=== PATIENT | male | born 1955 | race Caucasian/White ===

== ENCOUNTER 2019-10-20 06:00 | Outpatient (RCR) | payer OTHER, SELFPAY | END 2019-10-25 00:01 | LOC: APT 06:00 | PROVIDERS: Family Provider Emergency Medicine Emergency Medical Services; Visit Provider Specialist | DX: M17.12 Unilateral primary osteoarthritis, left knee (principal) | CPT/HCPCS: 97110 ×2; 97161 ==

== ENCOUNTER 2019-10-26 06:00 | Outpatient (RCR) | payer OTHER, SELFPAY | END 2019-11-25 23:59 | disposition home or self-care (01) | LOC: APT 06:00 | PROVIDERS: Family Provider Emergency Medicine Emergency Medical Services; PCP Emergency Medicine Emergency Medical Services; Visit Provider Specialist | DX: M17.12 Unilateral primary osteoarthritis, left knee (principal) | CPT/HCPCS: 97110; 97164 ==

== ENCOUNTER 2019-11-26 06:00 | Outpatient (RCR) | payer OTHER, SELFPAY | END 2019-12-24 23:59 | disposition home or self-care (01) | LOC: APT 06:00 | PROVIDERS: Family Provider Emergency Medicine Emergency Medical Services; PCP Emergency Medicine Emergency Medical Services; Visit Provider Specialist | DX: M17.12 Unilateral primary osteoarthritis, left knee (principal) | CPT/HCPCS: 97110; 97112 ==

== ENCOUNTER → 2022-08-13 09:34 | Outpatient (BNVA) | payer OTHER, SELFPAY | PROVIDERS: Family Provider Emergency Medicine Emergency Medical Services; PCP Emergency Medicine Emergency Medical Services; Visit Provider Orthopaedic Surgery | DX: M67.911 Unspecified disorder of synovium and tendon, right shoulder (principal) | CPT/HCPCS: 99203 ==

== ENCOUNTER 2022-08-19 08:48 | Outpatient (CLI) | payer OTHER, SELFPAY ==
--- NOTE | 2022-08-19 | ECG_ITS ---
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 Interpretive Statements NAME OF STUDY: LEXISCAN SESTAMIBI STRESS TEST INDICATION: Abnormal EKG , PROCEDURE: At the baseline, the EKG revealed normal sinus rhythm with diffuse nonspecific ST-T changes and frequent PVCs. The baseline heart was 77 bpm with a blood pressue of 121/79 mm of Hg Lexiscan was infused over a period of 20 seconds. A total of 0.4 milligrams of Lexiscan was infused. The stress phase was continued for a total of 5 minutes. Heart rate at the end of the stress phase was 89 bpm with a blood pressure 99/73 mm of Hg. The EKG at the peak infusion revealed no significant changes. Sestamibi was injected 20 seconds after the Lexiscan infusion. Heart rate at the end of the recovery phase was 90 bpm with a blood pressure of 114/69 mm of Hg. CONCLUSION: 1. No significant EKG changes with the LexiScan infusion 2. No LexiScan induced chest pain or cardiac arrhythmia 3. Normal blood pressure and heart rate response 4. Sestamibi/sestamibi perfusion scan pending; see separate report. Electronically Signed On 08-19-2022 13:50:21 CDT by Alber Bravo M.D. [id number]
[2022-08-19 09:10] VITALS: BMI 24.7
--- NOTE | 2022-08-19 09:14 | NMCV_ITS ---
NM lynsey perf SPECT r/s* [id number] Rohit London Age: 66 Gender: M : 1955 Exam Date: 08/19/2022 09:26 Ordering Phys: James Ding DO Technologist: SANTOS Clifton Exam Location: [facility] Indications: Chest pain STRESS TEST Please see separate stress test report in Ephiphany for full findings IMAGE PROTOCOL Rest/Stress 1 Lexiscan Day Radiopharmaceutical Dose (mCi) Administration Site Administered by Rest: Tc-99m 10.6 IV SANTOS Aguilera Sestamibi Stress:Tc-99m 32.6 IV SANTOS Clifton Sestamibi Rest: 19-Aug-2022 60 Discovery 630 Stress: 19-Aug-2022 30 Discovery 630 0.4mg Lexiscan. Images obtained in supine and prone position. SPECT RESULTS Technical Quality: Excellent Raw Data Analysis: Normal Image Corrections: No attenuation or motion correction applied Summed Stress Score: 24 Summed Rest Score: 18 Summed Difference Score: 6 PERFUSION FINDINGS Large area of moderate to severely decreased tracer uptake was noted in the inferior, inferolateral, anterolateral and apical lateral regions. Some reversibility was noted in the inferior and anterolateral regions. FUNCTIONAL RESULTS (calculated via Gated SPECT) Stress Image LV EF (%): 25 Stress EDV (mL):132 TID: 1.02 Stress ESV (mL):99 FUNCTIONAL FINDINGS: Segmental wall motion analysis reveals severe diffuse hypokinesia of the septum, LV apex and apical inferior wall regions IMPRESSIONS 1. Myocardial perfusion imaging revealing large area of moderately to severely decreased tracer uptake in the inferior, inferolateral, anterolateral and apical lateral regions for significant reversibility suggesting myocardial scarring with ischemia in the distribution of the right coronary artery and circumflex artery predominantly. Some involvement of the anterior descending artery territory also was noted. 2. Diminished LV ejection fraction 25%. 3. Multiple wall motion normalities as mentioned above. 4. Mild to moderate dilatation of the LV cavity -end-systolic volume of 99 ml. No similar previous studies are available for comparison Dr Alber Bravo MD FAC (Electronically Signed) Final Date: 19 August 2022 12:52 S
[2022-08-19] MEDS: regadenoson 0.4 Mg/5 ml Syringe IVP (10:29)
[2022-08-19 10:43] VITALS: BP 114/69; PULSE 89
== END 2022-08-19 08:49 | disposition home or self-care (01) ==
LOC: CDL 08:54
PROVIDERS: PCP Emergency Medicine Emergency Medical Services; Visit Provider Emergency Medicine Emergency Medical Services
DX: R94.31 Abnormal electrocardiogram [ECG] [EKG] (principal); R07.9 Chest pain, unspecified
CPT/HCPCS: 78452; 93017; A9500; J2785

== ENCOUNTER → 2022-10-07 09:28 | Outpatient (BNVA) | payer OTHER, SELFPAY | PROVIDERS: PCP Emergency Medicine Emergency Medical Services; Visit Provider Internal Medicine Cardiovascular Disease | DX: R94.39 Abnormal result of other cardiovascular function study (principal); I50.9 Heart failure, unspecified; J44.9 Chronic obstructive pulmonary disease, unspecified; M19.90 Unspecified osteoarthritis, unspecified site; F17.210 Nicotine dependence, cigarettes, uncomplicated | CPT/HCPCS: 99204 ==

== ENCOUNTER 2023-01-18 16:20 | Emergency (ER) | payer OTHER, SELFPAY ==
[2023-01-18 16:22] VITALS: BP 135/84; PULSE 88; RESP 16; TEMP 36.7; O2SAT 94
--- NOTE | 2023-01-18 16:30 | ED_ITS ---
HPI - Wound/Laceration General: Chief Complaint: Wound/Laceration Stated Complaint: LEFT THIGH LAC Time Seen by Provider: 01/18/23 16:25 History of Present Illness: 67-year-old male with laceration to left anterior thigh. Patient states he lost control of his skill saw and it cut into his thigh. He came immediately to the emergency department after sustaining the injury. No lack of sensation below the injury, ambulatory on the extremity, able to extend and hold his leg up. No other injury sustained, head strike, other sequelae of injury. [facility] ED PFSH: Medical History CHF (NYHA class II, ACC/AHA stage C) Congestive heart failure, NYHA class 3 COPD (chronic obstructive pulmonary disease) DJD (degenerative joint disease) Smoker Surgical History (Updated 10/07/22 @ 10:14 by Ruth Meraz MD) History of surgery on arm Family History Mother Diabetes Social History Smoking and tobacco status: current every day smoker cigarettes Packs smoked per day: 1 Years cigarettes smoked: 30 Alcohol intake: never Physical Exam Narrative: EXAM NARRATIVE: Left leg examination: Inspection demonstrates angulated medial to lateral inferiorly clean laceration with visible tendon sheath of the quadriceps muscle. Above the joint by approximately one half. Const: COMMON NORMALS: no acute distress and average body habitus HENMT: COMMON NORMALS: normocephalic, atraumatic and Normal external nose present HEAD & SCALP: normocephalic and atraumatic NOSE: Normal external nose present and Normal nares present Eye: COMMON NORMALS: Equal, round and reactive pupils present and EOMs intact bilaterally PUPIL: Yes Equal, round and reactive pupils present Neck/C-Spine: COMMON NORMALS: full ROM and no lymphadenopathy Resp: COMMON NORMALS: normal respiratory effort and No retractions Cardio: COMMON NORMALS: regular rate and Peripheral pulses 2+ throughout RATE: regular rate PERIPHERAL PULSES: Peripheral pulses 2+ throughout GI: INSPECTION: Yes normal to inspection Procedures Laceration Laceration 1: Side (If applicable): left Size (cm): 10 Description: linear Depth: simple, single layer Local Anesthetic: lidocaine 1% and with epi Pre-repair: wound explored, irrigated extensively and deep structures intact Skin layer closed with: nylon Size (cm): 3-0 Number of sutures: 8 Technique: simple, interrupted Course Vital Signs: Vital signs: Vital Signs Temperature 98.0 F 01/18/23 16:22 Pulse Rate 88 01/18/23 16:22 Respiratory Rate 16 01/18/23 16:22 Blood Pressure 135/84 01/18/23 16:22 Pulse Oximetry 94 01/18/23 16:22 Oxygen Delivery Me thod 01/18/23 16:22 MDM - Wound/Laceration Medical Decision Making 67-year-old male with simple superficial laceration. Vitals nonactionable. Diagnoses considered include neurovascular injury, tendinous injury, potential for infection, penetration of the joint, others. Examination does not suggest complication of this laceration as considered. Social determinants of health include [place] and [place] Repaired per procedure note and advised of signs of infection need to return. Should have sutures removed in 7 to 10 days. Patient states had tetanus updated 5 years ago and declines tetanus today. Differential Diagnosis Likely laceration Medical Records I reviewed the patient's medical records. Discharge Plan Discharge Patient Disposition: Home Clinical Impression: Laceration Condition: Stable Prescriptions: No Action meloxicam 15 mg tablet 15 mg PO DAILY PRN Discharge Orders: Discharge ED (Routine); Ordered 01/18/23 Ordered By: Ranjan Roy Referrals: James Ding, DO [Primary Care Provider] - Discharge Diet: Advance as tolerated Discharge Activity: Resume usual activity Patient Instructions: Opioid Safety, Pain Management Coding Level of Care Code ED Automotive Service Writer for Lori Carrero
[2023-01-18] MEDS: lidocaine-epi 1% 20 mL INJ INJECTION (16:31)
--- NOTE | 2023-01-18 16:31 | PC.NURSE ---
Lidocaine given to physician for administration
[2023-01-18 17:21] VITALS: PULSE 85; RESP 18; O2SAT 98
== END 2023-01-18 17:22 | disposition home or self-care (01) ==
PROVIDERS: Emergency Provider General Practice; PCP Emergency Medicine Emergency Medical Services
DX: S71.112A Laceration without foreign body, left thigh, initial encounter (principal); F17.210 Nicotine dependence, cigarettes, uncomplicated; I50.9 Heart failure, unspecified; J44.9 Chronic obstructive pulmonary disease, unspecified; W27.0XXA Contact with workbench tool, initial encounter
CPT/HCPCS: 12004; 99282

== ENCOUNTER 2023-03-30 08:57 | Emergency (ER) | payer OTHER, SELFPAY ==
[2023-03-30] VITALS (7 sets, daily range): BP systolic 104–164; BP diastolic 77–94; PULSE 68–97; RESP 18; TEMP 36.8; O2SAT 92–95; BMI 25.0
--- NOTE | 2023-03-30 09:02 | XRR_ITS ---
PROCEDURE INFORMATION: Exam: XR Chest Exam date and time: 03/30/2023 9:07 AM Age: 67 years old Clinical indication: Cough and dyspnea; Additional info: Dyspnea/cough TECHNIQUE: Imaging protocol: Radiologic exam of the chest. Views: 1 view. COMPARISON: DX XR shoulder RT min 2V* [id number] 07/18/2022 9:32 AM FINDINGS: Lungs: Unremarkable. No consolidation. Pleural spaces: Unremarkable. No pleural effusion. No pneumothorax. Heart/Mediastinum: Unremarkable. No cardiomegaly. Bones/joints: Unremarkable. XR/XR chest 1V portable [id number] IMPRESSION: No acute findings.
--- NOTE | 2023-03-30 09:02 | ECG_ITS ---
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 Measurements Intervals [place] Rate: 68 P: 67 [place]: 200 QRS: 10 QRSD: 97 T: 159 QT: 391 QTc: 417 Interpretive Statements SINUS RHYTHM ST DEVIATION AND MODERATE T-WAVE ABNORMALITY, CONSIDER LATERAL ISCHEMIA [-0.1+ mV T-WAVE IN I/aVL/V5/V6] No previous ECG available for comparison Electronically Signed On 03-30-2023 16:43:53 CDT by Addi Ibarra M.D. [email or web address]/[id number]
[2023-03-30] MEDS: sodium chloride 0.9% 1,000 ML 999 ML IV (09:07)
[2023-03-30 09:11] LABS: Basophils % 0.4 %; Eosinophils # 0.1 10^3/uL (0.0-0.8); Eosinophils % 0.6 %; Hematocrit 49.2 % (42.0-52.0); Hemoglobin 16.3 g/dL (11.7-16.6); Lymphocytes # 1.1 10^3/uL (0.8-4.8); Lymphocytes % 10.6 %; Mean Corpuscular HGB Conc 33.1 g/dL (30.0-36.0); Mean Corpuscular Hemoglobin 28.7 pg (28.0-34.0); Mean Corpuscular Volume 86.8 fl (80-94); Mean Platelet Volume 10.6 fL (7.4-10.4); Monocytes # 0.4 10^3/uL (0.2-0.9); Monocytes % 3.9 %; Neutrophils % 84.2 %; Nucleated Red Blood Cells % 0 %; Platelet Count 212 10^3/cmm (130-400); Red Blood Count 5.67 10^6/uL (4.1-5.3); Red Cell Distribution Width 14.2 % (12.1-15.1); White Blood Count 10.3 10^3/uL (4.0-10.0)
--- NOTE | 2023-03-30 09:27 | W.ED.ABDPA2 ---
HPI - Abdominal Pain General: Chief Complaint: Abdominal Pain Stated Complaint: ABD PAIN Time Seen by Provider: 03/30/23 08:58 Source: patient Mode of arrival: EMS History of Present Illness: 67-year-old male presents to the emergency room with complaint of upper abdominal pain. States it began overnight. He has not had any dysuria urgency or frequency denies any medic easy melena hematemesis or coffee-ground emesis. Patient is not on any proton pump inhibitors. He denies any previous abdominal surgeries no fever sweats or chills. In July 2022 patient had an abnormal stress test. He had follow-up with Dr. Meraz and requested to follow-up with his 's president and chief commercial officer. He has not seen president and chief commercial officer yet. He denies any recent chest pain or shortness of breath. The abdominal discomfort he is having today is not associated with exertion. MD elicited complaint: abdominal pain Onset (ago): minute(s) Pain Consistency: intermittent Location: Epigastric Severity: mild Exacerbating factors: nothing Relieving factors: nothing Associated Symptoms: Denies anorexia, belching, bloating, change in bowel habits, change in stool character, chills, coffee ground emesis, constipation, GI cramping, diarrhea, dyspepsia, dysuria, excessive flatus, fever(s), heartburn, hematochezia, hematuria, hematemesis, fecal incontinence, loose stools, melena, nausea, poor appetite, syncope and vomiting Review of Systems Const: Denies: fever(s) or chills ENMT: Denies: throat pain, ear or mastoid pain, nasal discharge or nasal congestion Card: Denies: chest pain, palpitations, irregular heart rhythm, edema or syncope Resp: Denies: dyspnea, productive cough or non-productive cough GI: Reports: abdominal pain; Denies: nausea, vomiting, hematemesis, coffee ground emesis, heartburn, diarrhea, constipation, bloating, GI cramping, belching, excessive flatus, fecal incontinence, change in bowel habits, change in stool character, hematochezia or melena : Denies: dysuria, urinary frequency, urinary urgency or hematuria Skin/Breast: Denies: rash or pruritus PFSH ED PFSH: Medical History CHF (NYHA class II, ACC/AHA stage C) Congestive heart failure, NYHA class 3 COPD (chronic obstructive pulmonary disease) DJD (degenerative joint disease) Smoker Surgical History History of surgery on arm Family History Mother Diabetes Social History Smoking and tobacco status: current every day smoker cigarettes Packs smoked per day: 1 Years cigarettes smoked: 30 Alcohol intake: never Substance/Drug Use: never Physical Exam Const: COMMON NORMALS: no acute distress GENERAL APPEARANCE: cooperative and comfortable ORIENTATION/CONSCIOUSNESS: Yes awake, Yes oriented to person, Yes oriented to place and Yes oriented to time HENMT: COMMON NORMALS: normocephalic, atraumatic and hearing grossly normal bilaterally HEAD & SCALP: normocephalic and atraumatic Resp: COMMON NORMALS: normal respiratory effort, No retractions, No use of accessory muscles and clear to auscultation bilaterally AUSCULTATION: clear to auscultation bilaterally Cardio: COMMON NORMALS: regular rate, regular rhythm and No murmurs present (Cardio) RATE: regular rate RHYTHM: regular rhythm GI: COMMON NORMALS: Soft to palpation and No hepatosplenomegaly present AUSCULTATION: Yes normoactive bowel sounds PALPATION: Yes Soft to palpation, No Tenderness to palpation present (GI), No Guarding due to palpation present (GI) and Yes No hepatosplenomegaly present Extremity: COMMON NORMALS: normal to inspection, capillary refill normal, no clubbing, cyanosis or edema, no calf tenderness and no pedal edema Neuro: SENSORIUM/ORIENTATION: Yes oriented to person, Yes oriented to place and Yes oriented to time Skin: COMMON NORMALS: no rashes or lesions noted GENERAL SKIN EXAM: no rashes or lesions noted Course Vital Signs: Vital signs: Vital Signs Temperature 98.2 F 03/30/23 09:00 Pulse Rate 75 03/30/23 13:04 Respiratory Rate 18 03/30/23 09:00 Blood Pressure 104/89 03/30/23 13:04 Pulse Oximetry 93 03/30/23 13:04 Oxygen Delivery Me thod Room Air 03/30/23 12:32 MDM - Abdominal Pain Medical Decision Making EKG shows inverted T waves in V5 and 6 however eventually after delaying his discharge we were able to [facility] and I contacted one of his nurses and they were able to fax the EKGs to the ER. He is not having any chest pain at this time. His troponins are negative. We will go and discharge patient home did put him on isosorbide mononitrate and aspirin take a baby aspirin daily additionally start him on pantoprazole. Discussed with the patient the importance of following up with a president and chief commercial officer sometime soon. If he has any worsening or change symptoms return to the emergency room. CT of the abdomen and other labs were otherwise unremarkable markable. Medical Records I reviewed the patient's medical records. Lab Data I reviewed the patient's lab results. 03/30/23 09:04 03/30/23 09:04 Labs/Radiology: Radiology Impressions Chest X-Ray 03/30/23 09:02 IMPRESSION: No acute findings. Laboratory Results WBC 10.3 10^3/uL (4.0-10.0) H 03/30/23 09:04 RBC 5.67 10^6/uL (4.1-5.3) H 03/30/23 09:04 Hgb 16.3 g/dL (11.7-16.6) 03/30/23 09:04 Hct 49.2 % (42.0-52.0) 03/30/23 09:04 MCV 86.8 fl (80-94) 03/30/23 09:04 MCH 28.7 pg (28.0-34.0) 03/30/23 09:04 MCHC 33.1 g/dL (30.0-36.0) 03/30/23 09:04 RDW 14.2 % (12.1-15.1) 03/30/23 09:04 Plt Count 212 10^3/cmm (130-400) 03/30/23 09:04 MPV 10.6 fL (7.4-10.4) H 03/30/23 09:04 Neut % (Auto) 84.2 % 03/30/23 09:04 Lymph % (Auto) 10.6 % 03/30/23 09:04 Bremer % (Auto) 3.9 % 03/30/23 09:04 Eos % (Auto) 0.6 % 03/30/23 09:04 Baso % (Auto) 0.4 % 03/30/23 09:04 Neut # (Auto) 8.70 10^3/uL (1.8-7.7) H 03/30/23 09:04 Lymph # (Auto) 1.1 10^3/uL (0.8-4.8) 03/30/23 09:04 Bremer # (Auto) 0.4 10^3/uL (0.2-0.9) 03/30/23 09:04 Eos # (Auto) 0.1 10^3/uL (0.0-0.8) 03/30/23 09:04 Baso # (Auto) 0.0 10^3/uL (0.0-0.1) 03/30/23 09:04 Nucleated RBC % (auto) 0 % 03/30/23 09:04 Nucleated RBCs # 0.0 /100WBC 03/30/23 09:04 Sodium 136 mmol/L (136-145) 03/30/23 09:04 Potassium 4.0 mmol/L (3.5-5.1) 03/30/23 09:04 Chloride 101 mmol/L (98-107) 03/30/23 09:04 Carbon Dioxide 23 mmol/L (22-29) 03/30/23 09:04 Anion Gap 16.0 (5-19) 03/30/23 09:04 BUN 16 mg/dL (8-23) 03/30/23 09:04 Creatinine 0.8 mg/dL (0.7-1.2) 03/30/23 09:04 GFR Calculation 95.8 mL/min (90-130) 03/30/23 09:04 Glucose 126 mg/dL (65-115) H 03/30/23 09:04 Calculated Osmolality 285 mOsm/kg (285-295) 03/30/23 09:04 Calcium 9.5 mg/dL (8.5-10.5) 03/30/23 09:04 Total Bilirubin 0.5 mg/dL (0.15-1.2) 03/30/23 09:04 AST 17 U/L (0-40) 03/30/23 09:04 ALT 22 U/L (0-41) 03/30/23 09:04 Alkaline Phosphatase 116 U/L (40-130) 03/30/23 09:04 Troponin T Baseline 7 ng/L (0-15) 03/30/23 09:04 Troponin T 120 Minute 7.32 ng/L (0-15) 03/30/23 11:11 Delta Troponin T 0.32 ABS# (0-10) 03/30/23 11:11 Total Protein 7.2 g/dL (6.6-8.7) 03/30/23 09:04 Albumin 4.3 g/dL (3.5-5.2) 03/30/23 09:04 Globulin 2.9 g/dL (1.3-4.6) 03/30/23 09:04 Lipase 16 U/L (13-60) 03/30/23 09:04 Urine Color Yellow (Yellow) 03/30/23 10:25 Urine Appearance Clear (CLEAR) 03/30/23 10:25 Urine pH 5 (5-7) 03/30/23 10:25 Ur Specific Cecil 1.020 (1.005-1.030) 03/30/23 10:25 Urine Protein Trace (Negative) 03/30/23 10:25 Urine Glucose (UA) Norm (Normal) 03/30/23 10:25 Urine Ketones 1+ (Negative) H 03/30/23 10:25 Urine Blood Neg (Negative) 03/30/23 10:25 Urine Nitrate Negative (Negative) 03/30/23 10:25 Urine Bilirubin Neg (Negative) 03/30/23 10:25 Urine Urobilinogen Norm mg/dL (Negative) 03/30/23 10:25 Ur Leukocyte Esterase Trace (Negative) H 03/30/23 10:25 Urine RBC 0-4 /hpf (0-2) H 03/30/23 10:25 Urine WBC 0-4 /hpf (0-5) H 03/30/23 10:25 Ur Squamous Epith Cells 0-4 /hpf (0-5) H 03/30/23 10:25 Amorphous Sediment Not Reportable 03/30/23 10:25 Urine Bacteria 1+ /hpf (NONE) H 03/30/23 10:25 Urine Mucus Trace /hpf 03/30/23 10:25 Discharge Plan Discharge Patient Disposition: Home Clinical Impression: Abdominal pain, Abnormal nuclear stress test Condition: Stable Prescriptions: New pantoprazole 40 mg tablet,delayed release (DR/EC) 40 mg PO DAILY 56 Days Qty: 60 0RF isosorbide mononitrate 30 mg tablet extended release 24 hr 30 mg PO DAILY Qty: 30 0RF aspirin 81 mg tablet,delayed release (DR/EC) 81 mg PO DAILY Qty: 30 0RF No Action meloxicam 15 mg tablet 15 mg PO DAILY PRN (Reason: Pain) Fish Oil 500 mg Capsule 500 mg PO BID Vitamin D3 50 mcg (2,000 unit) Capsule 50 mcg PO DAILY Discharge Orders: Discharge ED (Routine); Ordered 03/30/23 Ordered By: Binu Wilkerson Referrals: James Ding DO [Primary Care Provider] - Discharge Diet: Usual diet Discharge Activity: Limit activity as instructed Patient Instructions: Abdominal Pain (ED), Opioid Safety, Pain Management Activity Restrictions/Additional Instructions: You were seen today for abdominal discomfort abdominal exam your laboratory test had no clinically significant abnormalities. Recommend you start on pantoprazole 40 mg once daily and follow-up with your primary care doctor. In reviewing your chart it was noted that she previously had an abnormal stress test. Cardiac enzymes today did not show any acute changes. I would recommend that you follow-up with either Dr. Perea who you have seen in the past or [facility] you are able. If you have recurrent episodes of chest pain or discomfort return to the emergency room. Coding Level of Care Code ED Auditor Internal for Lori Carrero
[2023-03-30 09:32] LABS: Alanine Aminotransferase 22 U/L (0-41); Albumin Level 4.3 g/dL (3.5-5.2); Alkaline Phosphatase 116 U/L (40-130); Aspartate Amino Transferase 17 U/L (0-40); Blood Urea Nitrogen 16 mg/dL (8-23); Calcium 9.5 mg/dL (8.5-10.5); Carbon Dioxide 23 mmol/L (22-29); Chloride 101 mmol/L (98-107); Globulin 2.9 g/dL (1.3-4.6); Glomerular Filtration Rate 95.8 mL/min (90-130); Glucose 126 mg/dL (65-115); Lipase 16 U/L (13-60); Osmolality Calculated 285 mOsm/kg (285-295); Sodium 136 mmol/L (136-145); Total Bilirubin 0.5 mg/dL (0.15-1.2); Total Protein 7.2 g/dL (6.6-8.7)
[2023-03-30 09:53] LABS: Troponin(5th) Baseline 7 ng/L (0-15)
[2023-03-30] MEDS: lidocaine 2% viscous 15 ML, aluminum-mag hydrox-simethicon 30 ML, sucralfate oral liq 1 GM PO (10:13)
--- NOTE | 2023-03-30 10:13 | PC.PHAR ---
[facility]
[2023-03-30 11:05] LABS: Protein Urine Trace (Negative); Urine Appearance Clear (CLEAR); Urine Color Yellow (Yellow); pH Urine 5 (5-7)
[2023-03-30 11:06] LABS: Add Urine Culture? No; Add Urine Microscopic? YES; Bacteria Urine 1+ /hpf; Bilirubin Urine Neg (Negative); Blood Urine Neg (Negative); Glucose Urine UA Norm (Normal); Ketones Urine 1+ (Negative); Leukocyte Esterase Urine Trace (Negative); Mucus Urine TRACE /hpf; Nitrate Urine Negative (Negative); RBC Urine 0-4 /hpf (0-2); Squamous Epithelial Cell Urine 0-4 /hpf (0-5); Urobilinogen Urine Norm (Negative); WBC Urine 0-4 /hpf (0-5)
--- NOTE | 2023-03-30 11:18 | ECG_ITS ---
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 Measurements Intervals [place] Rate: 69 P: 65 [place]: 199 QRS: -2 QRSD: 96 T: 153 QT: 377 QTc: 407 Interpretive Statements SINUS RHYTHM ST DEVIATION AND MODERATE T-WAVE ABNORMALITY, CONSIDER LATERAL ISCHEMIA [-0.1+ mV T-WAVE IN I/aVL/V5/V6] Compared to ECG 03/30/2023 09:14:00 No significant changes Electronically Signed On 03-30-2023 16:45:39 CDT by Addi Ibarra M.D. [id number]
[2023-03-30 11:35] LABS: Troponin 5 2HR 7.32 ng/L (0-15)
[2023-03-30 11:55] LABS: Troponin 5 2HR Delta 0.32 ABS# (0-10)
== END 2023-03-30 13:05 | disposition home or self-care (01) ==
PROVIDERS: Emergency Provider Family Medicine; PCP Emergency Medicine Emergency Medical Services
DX: R10.13 Epigastric pain (principal); R94.31 Abnormal electrocardiogram [ECG] [EKG]
CPT/HCPCS: 36415; 71045; 80053; 81001; 83690; 84484; 85025; 93005; 96360; 99285; J7030

== ENCOUNTER → 2025-01-05 10:27 | Outpatient (BNVA) | payer OTHER, SELFPAY | PROVIDERS: Visit Provider Orthopaedic Surgery | DX: M25.562 Pain in left knee (principal); M23.8X2 Other internal derangements of left knee; Z01.818 Encounter for other preprocedural examination | CPT/HCPCS: 36415; 73560; 73565; 80053; 81001; 85025; 87077; 87086; 87186; 99204 ==

== ENCOUNTER → 2025-01-31 08:27 | Outpatient (BNVA) | payer OTHER, SELFPAY | PROVIDERS: Visit Provider Family Medicine | DX: Z01.818 Encounter for other preprocedural examination (principal); R94.31 Abnormal electrocardiogram [ECG] [EKG]; I49.3 Ventricular premature depolarization | CPT/HCPCS: 81003; 87077; 87086; 87184; 93005 ==

== ENCOUNTER 2025-02-01 08:37 | Day surgery (SDC) | payer OTHER, SELFPAY ==
[2025-02-01] VITALS (10 sets, daily range): BP systolic 122–141; BP diastolic 61–89; PULSE 68–90; RESP 12–18; TEMP 36.1–36.2; O2SAT 93–100
[2025-02-01] MEDS: sodium chloride 0.9% 1,000 ML 30 ML IV (09:19)
--- NOTE | 2025-02-01 09:58 | ANES.PREANE2 ---
Pre-Anesthetic Assessment Height/Weight: Height 5 ft 8 in Weight 162 lb Temp Pulse Resp BP Pulse Ox 97.2 F L 71 16 130/87 97 02/01/25 09:03 02/01/25 09:03 02/01/25 09:03 02/01/25 09:03 02/01/25 09:03 Preop Diagnosis: Knee pain Operation Date: 02/01/25 10:40 Proposed Procedures p Knee Arthroscopy Knee Diagnostic and Surgical Arthroscopy(Left) - Zane John MD Was Beta Sanju taken within 24 hours: N/A Was Clonidine taken within 24 hours: N/A Last intake: Intake Last Liquid Date 02/01/25 Last Liquid Time 06:00 Last Solid Date 01/31/25 Last Solid Time 23:00 Social Tobacco and No alcohol Exam alert, oriented x 3, clear to auscultation bilaterally and regular rate & rhythm Airway Submandibular: within normal limits Cervical ROM: within normal limits Mallampati: Class II Comments: Comments: Multiple missing teeth, denies any loose Anesthetic Plan ASA status: 3 Anesthesia: General Other: No prior issues with anesthesia NPO since yesterday evening History of COPD, chronic smoker. No inhalers Prior CHF, EKG showing sinus rhythm with ST depression which was noted on previous EKG 1 year ago Patient states that he gets around just fine Recent labs reviewed and acceptable for procedure Plan for general anesthesia Medications/Allergies Home Medications ?Medication ?Instructions ?Recorded ?Confirmed ?Last Taken ?Type meloxicam 15 mg tablet 15 mg PO DAILY PRN Pain 10/07/22 02/01/25 01/01/25 History aspirin 81 mg tablet,delayed 81 mg PO DAILY #30 tabs 03/30/23 02/01/25 01/27/25 Rx release cholecalciferol (vitamin D3) 50 50 mcg PO DAILY 03/30/23 02/01/25 01/27/25 History mcg (2,000 unit) capsule (Vitamin D3) isosorbide mononitrate 30 mg 30 mg PO DAILY #30 tabs 03/30/23 02/01/25 01/17/25 Rx tablet,extended release 24 hr omega-3 fatty acids 500 mg capsule 500 mg PO BID 03/30/23 02/01/25 01/27/25 History Allergies Allergy/AdvReac Type Severity Reaction Status Date / Time No Known Allergies Allergy Verified 01/31/25 08:38 Current Medications Generic Name Dose Route Start Last Admin Trade Name Babatundeq PRN Reason Stop Dose Admin Sodium Chloride 1,000 mls @ 30 mls/hr 02/01/25 08:45 02/01/25 09:19 Sodium Chloride 0.9% IV 02/02/25 08:44 30 mls/hr .Q24H JEREMIAH Administration PFSH Anesthesia Medical History CHF (NYHA class II, ACC/AHA stage C) Congestive heart failure, NYHA class 3 Smoker COPD (chronic obstructive pulmonary disease) DJD (degenerative joint disease) Surgical History History of surgery on arm Family History Mother Diabetes Social History Smoking and tobacco/nicotine status: current every day tobacco/nicotine user cigarettes Packs smoked per day: 1 Years cigarettes smoked: 30 Alcohol intake: never Substance/Drug Use: never Data Anesthesia Cardiac Studies: Sestamibi Stress Test (Cardiology) 08/19/22
--- NOTE | 2025-02-01 10:41 | W.PM.OPSFHP ---
Same Day Surgery H&P Indication for Procedure/HPI DATE OF PROCEDURE: February 01, 2025 CHIEF COMPLAINT/INDICATIONFOR SURGICAL PROCEDURE: Painful left knee PREOP DIAGNOSIS: Knee pain PLANNED PROCEDURE: Operation Date: 02/01/25 10:40 Proposed Procedures p Knee Arthroscopy Knee Diagnostic and Surgical Arthroscopy(Left) - Zane John MD Medications/Allergies* Home Medications ?Medication ?Instructions ?Recorded ?Confirmed ?Type meloxicam 15 mg tablet 15 mg PO DAILY PRN Pain 10/07/22 02/01/25 History cholecalciferol (vitamin D3) 50 50 mcg PO DAILY 03/30/23 02/01/25 History mcg (2,000 unit) capsule (Vitamin D3) omega-3 fatty acids 500 mg capsule 500 mg PO BID 03/30/23 02/01/25 History Allergies/Adverse Reactions Allergy/AdvReac Type Severity Reaction Status Date / Time No Known Allergies Allergy Verified 01/31/25 08:38 Current Medications: Generic Name Dose Route Start Last Admin Trade Name Freq PRN Reason Stop Dose Admin Sodium Chloride 1,000 mls @ 30 mls/hr 02/01/25 08:45 02/01/25 09:19 Sodium Chloride 0.9% IV 02/02/25 08:44 30 mls/hr .Q24H JEREMIAH Administration Pertinent History/Comorbid Conditions* Medical History (Updated 04/07/23 @ 00:01 by SACIH Solis) CHF (NYHA class II, ACC/AHA stage C) Congestive heart failure, NYHA class 3 Smoker COPD (chronic obstructive pulmonary disease) DJD (degenerative joint disease) Surgical History (Updated 10/07/22 @ 10:14 by Ruth Meraz MD) History of surgery on arm Family History (Updated 10/07/22 @ 09:59 by Augustina Richards RN) Diabetes Mother Social History Smoking and tobacco/nicotine status: current every day tobacco/nicotine user cigarettes Packs smoked per day: 1 Years cigarettes smoked: 30 Alcohol intake: never Substance/Drug Use: never Pertinent Exam Findings alert, oriented x 3, clear to auscultation bilaterally, regular rate & rhythm, operative site marked and procedure specific exam findings Recommendations Risks and benefits of procedure reviewed and Patient/family agree to proceed Surgery/Procedure today Coding Level of Care Code Acute Code for Chg Fwd
[2025-02-01] MEDS: ceFAZolin 2,000 mg SDV 2000 MG IVP (10:48)
[2025-02-01] MEDS: BUPivacaine 0.5% INJ 30 mL 20 ML INJECTION (11:34)
--- NOTE | 2025-02-01 11:54 | PM.OP ---
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 Procedure: Diagnostic left knee arthroscopy partial medial and lateral meniscectomies, chondroplasty throughout the knee, partial synovectomy Surgeon: Zane John MD Anesthesia: General Tourniquet time: 0 Indications: Rohit is a 69-year-old white male comes at this time with painful left knee. He said pain and problems for quite some time now. He has had a workup by his primary care which identified degenerative changes within his knee. Therefore at this time he is referred on to the orthopedic clinic for further evaluation and treatment. After evaluating x-rays as well as an MRI is felt patient would benefit from total knee arthroplasty however the patient would like to refrain from this at this time. Therefore he is offered a diagnostic knee arthroscopy with debridement of the area where as well as an evaluation of the knee itself to see how worn-out it is. All risk benefits treatment alternatives were discussed with him is agreeable to proceed with this at this time. Procedure: After obtaining her consent patient take the operating room placed Table supine position general anesthetic administered. Once good anesthesia was achieved left legs placed in leg herrera and for the bed was dropped. Right legs padded appropriately. Left lower extremity and knee were prepped and draped usual fashion. After surgical timeout standard anterior medial and lateral portals were made into the knee and a camera cans placed a lateral portal. To her knee is undertaken and was noted there is hypertrophic synovium in the suprapatellar pouch and a large medial plica that was debrided with mechanical shaver. Posterior patella was a good repair. 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 This debrided mechanical shaver. Medial gutter was clear other than hypertrophic synovium. Medial compartment demonstrated kissing lesion of grade IV chondromalacia of both medial tibial plateau and medial femoral condyle. There is also degenerative tearing of the majority of the meniscus from the posterior horn all the way up to the junction between the anterior and middle thirds of the meniscus. Using small hand instruments and a mechanical shaver this debrided down to stable cartilaginous base. Chondroplasty was done through the medial compartment to remove all loose fragments and flaps of articular cartilage. Intercondylar notch demonstrated lax partially functioning ACL. Lateral compartment demonstrated grade II/III chondromalacia of the lateral femoral condyle that was debrided with Shaver down to stable cartilage space. There is also degenerative tearing of the inner aspect of the middle third of the lateral meniscus. This too was then debrided with mechanical shaver down to stable cartilaginous space. Knee was then washed coachman sterile irrigation. All cannulas removed. Wounds are closed with 3-0 nylon interrupted sutures. They were injected with quarter percent Marcaine plain with totaling 20 cc or postop pain management. Wounds then cleaned and dried dressed with Xeroform gauze sterile gauze dressing Curlex wrap and Emiliano wrap for compression. Patient awakened transferred to cover room in stable condition
[2025-02-01] MEDS: HYDROcodone-acetaminophen 7.5-325 mg Tablet 1 TAB PO (12:42)
--- NOTE | 2025-02-01 13:00 | ANE.PACU2 ---
Inpatient post-anesthesia follow up: Airway intact: Yes Vital signs: Temperature 97.2 F Pulse Rate 68 Respiratory Rate 16 Blood Pressure 140/84 Pulse Oximetry 93 Oxygen Delivery Me thod Room Air Oxygen Flow Rate 6 Fraction of Inspir ed Oxygen Hydration adequate: Yes Nausea and vomiting: No Pain level: 1 Mental status: Baseline
== END 2025-02-01 13:00 | disposition home or self-care (01) ==
PROVIDERS: Visit Provider Orthopaedic Surgery
PROC: (CPT 29870; principal; 2025-02-01 10:40)
PROC: (CPT 29880; 2025-02-01 10:40)
DX: S83.242A Other tear of medial meniscus, current injury, left knee, initial encounter (principal); S83.282A Other tear of lateral meniscus, current injury, left knee, initial encounter; M94.262 Chondromalacia, left knee; J44.9 Chronic obstructive pulmonary disease, unspecified; Z79.82 Long term (current) use of aspirin; I50.9 Heart failure, unspecified; F17.210 Nicotine dependence, cigarettes, uncomplicated; Z79.899 Other long term (current) drug therapy; X58.XXXA Exposure to other specified factors, initial encounter
CPT/HCPCS: 29880; J0131; J0690; J1100; J2405; J2704; J3010; J3490; J7030; J9999

== ENCOUNTER → 2025-02-16 11:00 | Outpatient (BNVA) | payer OTHER, SELFPAY | PROVIDERS: Visit Provider Orthopaedic Surgery | DX: Z98.890 Other specified postprocedural states (principal) | CPT/HCPCS: 99024 ==

== ENCOUNTER → 2025-06-29 10:16 | Outpatient (BNVA) | payer OTHER, SELFPAY | PROVIDERS: Visit Provider Orthopaedic Surgery | DX: M25.521 Pain in right elbow (principal) | CPT/HCPCS: 73080; 99214 ==

== ENCOUNTER → 2025-07-14 08:47 | Outpatient (BNVA) | payer OTHER, SELFPAY | PROVIDERS: Visit Provider Orthopaedic Surgery | DX: M70.21 Olecranon bursitis, right elbow (principal) | CPT/HCPCS: 99213 ==